=== PATIENT | female | born 1960 | race Caucasian/White ===

== ENCOUNTER 2024-05-03 08:38 | Day surgery (SDC) | payer OTHER, MEDICARE ==
[2024-04-25 16:12] VITALS: BMI 21.5
[~2024-05-03 08:38] MED LIST: LACTATED RINGERS SOLUTION 1,000 ML IV SCH; ONDANSETRON 4 MG/2 ML VIAL IVPUSH PRN; oxyCODONE HCL 5 MG TABLET PO PRN
[2024-05-03] MEDS ORDERED: MIDAZOLAM HCL 2 MG/2 ML SINGLE DOSE VIAL ONE (08:55)
[2024-05-03] MEDS ORDERED: ACETAMINOPHEN INJECTION 100 ML ONE (10:53)
[2024-05-03] MEDS: ACETAMINOPHEN 1000 MG/100 ML BAG IVPB ONE (11:00)
[2024-05-03] MEDS ORDERED: KETOROLAC TROMETHAMINE 30 MG/1 ML VIAL ONE (11:11)
[2024-05-03] MEDS: KETOROLAC TROMETHAMINE 30 MG/1 ML VIAL IM PRN (11:15)
[2024-05-03 12:38] VITALS: RESP 18; TEMP 97.5
[2024-05-04 11:54] VITALS: BP 101/54; PULSE 72
== END 2024-05-03 12:30 | disposition home or self-care (01) ==
LOC: FASU 08:38
PROVIDERS: ATTEND Orthopaedic Surgery
PROC: 0SCD4ZZ Extirpation of Matter from Left Knee Joint, Percutaneous Endoscopic Approach (ICD-10-PCS; principal; 2024-05-03 10:00)
PROC: 0SBD4ZZ Excision of Left Knee Joint, Percutaneous Endoscopic Approach (ICD-10-PCS; 2024-05-03 10:00)
DX: M23.42 Loose body in knee, left knee (principal)
CPT/HCPCS: 94760; J0131